=== PATIENT | male | born 1995 | race Two or more races ===

== ENCOUNTER 2019-03-02 19:57 | Emergency (ER) | payer OTHER ==
--- NOTE | 2019-03-02 20:17 | ED Physician Documentation ---
PD HPI LOWER EXT INJURY - Stated complaint Stated Complaint: LFT FOOT INJ - Chief complaint Chief Complaint: Trauma Ext - History obtained from History obtained from: Patient - History of Present Illness PD HPI LOW EXT INJURY LOCATION: Left, Ankle Type of injury: Twist (inversion as he stepped on a pine cone while walking.) Where injury occurred: [place] (he was out for a walk. He was able to walk back to the car after the injury, but hurt.) Timing - onset: Today Timing - details: Abrupt onset, Still present Worsened by: Moving, Palpating, Other (walking) Associated symptoms: Swelling. No: Weakness, Numbness Similar symptoms before: Has not had sx before Recently seen: Not recently seen Review of Systems Skin: denies: Abrasion (s), Laceration (s) Neurologic: denies: Focal weakness, Numbness PD PAST MEDICAL HISTORY - Past Medical History Cardiovascular: None Respiratory: None - Past Surgical History Past Surgical History: No - Present Medications Home Medications: Ambulatory Orders Medication Instructions Recorded Confirmed Cyclobenzaprine [Flexeril] 10 mg PO TID PRN #20 tablet 04/04/16 - Allergies Allergies/Adverse Reactions: Allergies Allergy/AdvReac Type Severity Reaction Status Date / Time amoxicillin trihydrate * Allergy Edema Verified 03/02/19 20:06 [From Augmentin] potassium clavulanate * Allergy Edema Verified 03/02/19 20:06 [From Augmentin] - Social History Does the pt smoke?: No Smoking Status: Never smoker Does the pt drink ETOH?: Yes Does the pt have substance abuse?: No - Immunizations Immunizations are current?: Yes PD ED PE NORMAL - Vitals Vital signs reviewed: Yes - General General: Alert and oriented X 3, No acute distress, Well developed/nourished - Derm Derm: Normal color, Warm and dry - Extremities Extremities: Other (The left ankle shows some swelling and tenderness along the distal malleolus and inframalleolar area. There is no gross laxity on inversion stress testing. It does hurt to invert. Medial aspect and the Achilles is not tender. He has range of motion of the ankle without limitation though has pain with inversion and plantarflexion. There is good sensation color and cap refill in the toes.) - Neuro Neuro: No motor deficit, No sensory deficit Results - Vitals Vitals: Vital Signs - 24 hr 03/02/19 03/02/19 20:06 21:24 Temperature 37.1 C 37.2 C Heart Rate 97 88 Respiratory 15 18 Rate Blood Pressure 153/90 H 156/78 H O2 Saturation 98 98 Oxygen O2 Source Room air - Rads (name of study) ankle xray Radiology: Prelim report reviewed, EMP read contemporaneously (Incidental finding of a old medial ankle avulsion. No acute fractures seen.), See rad report PD MEDICAL DECISION MAKING - ED course Complexity details: re-evaluated patient, considered differential, d/w patient Departure - Departure Disposition: 01 Home, Self Care Clinical Impression: Ankle sprain Condition: Stable Record reviewed to determine appropriate education?: Yes Instructions: ED Sprain Ankle W X Ray Follow-Up: Guillermo Mcrae, DO [Primary Care Provider] - Comments: Use the ankle brace when up and around for about 10 to 14 days until this is healed up well and feels sturdy. This is to prevent reinjury and also allow better healing. Initially use crutches as needed for comfort and progress weightbearing as able. Elevate rest and ice the ankle often tonight for swelling. Use ibuprofen or naproxen or Tylenol as needed for pains. Recheck if not better over the next week or so. Discharge Date/Time: 03/02/19 21:33
--- NOTE | 2019-03-02 21:22 | XRAY Report ---
Reason: inversion injury anle Procedure Date: 03/02/2019 Accession Number: [id number] / [id number] Procedure: XR - Ankle 3 View LT CPT Code: FULL RESULT: EXAM: LEFT ANKLE RADIOGRAPHY. EXAM DATE: 03/02/2019 08:46 PM. CLINICAL HISTORY: Inversion injury today. Pain and swelling. COMPARISON: None. TECHNIQUE: 3 views. FINDINGS: Bones: 8 x 5 mm calcification inferior to the medial malleolus with possible small amount of associated edema. The rest of the trabecular and cortical patterns are unremarkable. Joints: Moderate ankle effusion. Ankle mortise of normal caliber without bony reactive changes. Soft Tissues: Marked edema over the lateral malleolus. IMPRESSION: 1. 8 x 5 mm avulsion fracture of indeterminate age off the medial malleolus with minimal if any edema. Correlate clinically to determine significance. 2. Moderate ankle effusion. 3. No bony abnormality to account for the lateral ankle edema. RADIA
[2019-03-02 21:25] VITALS: BP 156/78
== END 2019-03-02 21:33 | disposition home or self-care (01) ==
LOC: ED 19:57
DX: S93.402A Sprain of unspecified ligament of left ankle, initial encounter (principal); X50.1XXA Overexertion from prolonged static or awkward postures, initial encounter; Y93.01 Activity, walking, marching and hiking; Y92.830 Public park as the place of occurrence of the external cause
CPT/HCPCS: 99282; 99283

== ENCOUNTER 2019-03-04 16:50 | Emergency (ER) | payer OTHER ==
[2019-03-04 16:58] VITALS: BP 149/96
--- NOTE | 2019-03-04 17:18 | ED Physician Documentation ---
History of Present Illness - Stated complaint Stated Complaint: FOLLOW UP - Chief complaint Chief Complaint: General - History obtained from History obtained from: Patient - Additonal information Additional information: Patient is a 24-year-old male who was seen several days ago with left ankle injury. Patient is presenting requesting work note starting from several days ago when he was initially in the ED for his employer. Patient is also unclear if he needs paperwork to return to work. Patient reports he is still experiencing some discomfort and limited mobility and using crutches. Patient denies new injury, swelling, skin changes, sensation or strength changes to the left ankle. Patient does have brace in place limiting range of motion. No other improving or worsening factors noted. Review of Systems Skin: denies: Abrasion (s), Laceration (s) Musculoskeletal: reports: Extremity pain. denies: Joint pain, Extremity swelling Neurologic: denies: Focal weakness, Numbness PD PAST MEDICAL HISTORY - Past Medical History Cardiovascular: None Respiratory: None - Past Surgical History Past Surgical History: No - Present Medications Home Medications: Ambulatory Orders Medication Instructions Recorded Confirmed Cyclobenzaprine [Flexeril] 10 mg PO TID PRN #20 tablet 04/04/16 - Allergies Allergies/Adverse Reactions: Allergies Allergy/AdvReac Type Severity Reaction Status Date / Time amoxicillin trihydrate * Allergy Edema Verified 03/04/19 16:58 [From Augmentin] potassium clavulanate * Allergy Edema Verified 03/04/19 16:58 [From Augmentin] - Social History Does the pt smoke?: No Smoking Status: Never smoker Does the pt drink ETOH?: Yes Does the pt have substance abuse?: No - Immunizations Immunizations are current?: Yes - POLST Patient has POLST: No PD ED PE NORMAL - Vitals Vital signs reviewed: Yes - General General: Alert and oriented X 3, No acute distress, Well developed/nourished - HEENT HEENT: Atraumatic, Moist mucous membranes - Neck Neck: Supple, no meningeal sign - Cardiac Cardiac: Strong equal pulses - Respiratory Respiratory: No respiratory distress - Derm Derm: Normal color, Warm and dry, No rash - Extremities Extremities: No deformity, No tenderness to palpate, No edema, Other (Brace in place over left ankle) - Neuro Neuro: Alert and oriented X 3, No motor deficit, No sensory deficit - Psych Psych: Normal mood, Normal affect Results - Vitals Vitals: Vital Signs - 24 hr 03/04/19 16:55 Temperature 35.9 C L Heart Rate 107 H Respiratory 19 Rate Blood Pressure 149/96 H O2 Saturation 98 Oxygen O2 Source Room air PD MEDICAL DECISION MAKING - ED course Complexity details: reviewed old records, considered differential, d/w patient ED course: Patient presenting with concern for need of work note over the past several days and/or potential release to work, but he is unclear what his past truly wants. Patient is still having some discomfort and using crutches, so do not feel he is necessarily ready to return to work. Unable to backdate work note, but able to provide a work note from today. Recommended providing discharge paperwork to his employer to assist with this issue. Also recommended follow-up with primary care physician and supportive cares. Departure - Departure Disposition: 01 Home, Self Care Clinical Impression: Ankle sprain Qualifiers: Encounter type: subsequent encounter Involved ligament of ankle: unspecified ligament Laterality: left Qualified Code(s): S93.402D - Sprain of unspecified ligament of left ankle, subsequent encounter Instructions: ED Sprain Ankle Follow-Up: Guillermo Mcrae DO [Primary Care Provider] - Within 3 Days Comments: Recommend continued supportive cares including elevation, ice application, ibuprofen/Tylenol. Recommend follow-up with your primary care physician in next 2 to 3 days.Return to ED sooner if experience new injury or worsening symptoms. Forms: Activity restrictions
== END 2019-03-04 17:30 | disposition home or self-care (01) ==
LOC: ED 16:50
DX: Z02.79 Encounter for issue of other medical certificate (principal); S93.402A Sprain of unspecified ligament of left ankle, initial encounter
CPT/HCPCS: 99282